=== PATIENT | female | born 1960 | race Caucasian/White ===

== ENCOUNTER 2018-02-24 09:50 | Day surgery (SDC) | END 2018-02-24 16:39 | disposition home or self-care (01) ==

== ENCOUNTER 2019-01-12 06:46 | Day surgery (SDC) | payer OTHER ==
[~2019-01-12] VITALS: Ht 152.4 cm; Wt 71.6 kg
[~2019-01-12 06:46] MED LIST: ASPI-903 PO; OMEP20CA16 PO
[2019-01-12] MEDS ORDERED: PROPOFOL 200 MG INJ ONE (07:00)
[2019-01-12 08:05] VITALS: Ht 152.4 cm; Wt 71.6 kg
[2019-01-12] MEDS ORDERED: LORA10TA3 PO (08:18)
[2019-01-12] MEDS ORDERED: SIMV80TA18 PO (08:18)
--- NOTE | 2019-01-12 08:18 | PREAC ---
Date/Time of Note Date/Time of Note DATE: 01/12/19 TIME: 08:17 Anesthesia Eval and Record Evaluation Time Pre-Procedure Interview DATE: 01/12/19 TIME: 08:17 Age 58 Sex female NPO: 8 hrs Preoperative diagnosis GERD; screening Planned procedure EGD/colonoscopy Past Medical History Past Medical History: Includes Cardio: Dyslipidemia GI: GERD Surgery & Anesthesia Issues No known issue Meds Anticoagulation: No Beta Grace within 24 hr: No Reason Beta Grace not given: Pt. not on B-Grace Reported Medications Aspirin* (Aspirin* Chew) 81 Mg Tab.chew, 81 MG PO, TAB.CHEW 09/13/14 Omeprazole* (Omeprazole*) 20 Mg Capsule.dr, 20 MG PO DAILY, CAP 09/13/14 Meds reviewed: Yes Allergies Coded Allergies: No Known Allergy (Unverified , 02/24/18) Allergies Reviewed: Yes Labs/Studies Labs Reviewed: Reviewed by anesthesiologist test: N/A Pre-procedure Exam Airway: Adequate mouth opening, Adequate thyromental dist Mallampati: Mallampati II Teeth: Normal Lung: Normal Heart: Normal ASA Physical Status ASA physical status: 2 Emergency: None Planned Anesthetic General/MAC: MAC Pre-operative Attestations Prior to commencing anesthesia and surgery, the patient was re-evaluated, there was verification of: *The patient's identity *The results of appropriate recent lab work and preoperative vital signs *The above evaluation not changing prior to induction *Anesthetic plan, risk benefits, alternative and complications discussed with patient/family; questions answered; patient/family understands, accepts and wishes to proceed. YESICA HOLCOMB January 12, 2019 08:18
[2019-01-12] MEDS ORDERED: LIDOCAINE 2% (SDV) 5 ML INJ ONE (08:20)
[2019-01-12] MEDS ORDERED: PROPOFOL 60 ML ONE (08:20)
[2019-01-12] MEDS ORDERED: ONDANSETRON 4 MG INJ IV PRN (08:30)
[2019-01-12] MEDS ORDERED: ACETAMINOPHEN 500 MG TAB PO PRN (08:30)
[2019-01-12] MEDS ORDERED: FENTAnyl 50 MCG/ML VIAL IV PRN (08:30)
[2019-01-12] MEDS ORDERED: ALBUTEROL 0.083% (NEB) 2.5 MG/3 ML AMP HHN PRN (08:30)
[2019-01-12 08:31] VITALS: BP 119/70; PULSE 67; RESP 18
--- NOTE | 2019-01-12 09:22 | PAC ---
Date/Time of Note Date/Time of Note DATE: 01/12/19 TIME: 09:21 Post-Anesthesia Notes Post-Anesthesia Note Last documented vital signs Vital Signs Date Temp Pulse Resp B/P (MAP) Pulse Ox O2 O2 Flow FiO2 Time Delivery Rate 01/12/19 98.2 98 67 70 18 16 119/70 95 100 Room 08:31 092 (86) 136/ Air NC 4L 2 72 Activity: WNL Respiratory function: WNL Cardiovascular function: WNL Mental status: Baseline Pain reasonably controlled: Yes Hydration appropriate: Yes Nausea/Vomiting absent: Yes YESICA HOLCOMB January 12, 2019 09:22
[2019-01-12 09:56] VITALS: BP 129/76; RESP 20
== END 2019-01-12 11:04 | disposition home or self-care (01) ==
LOC: GIL 06:46
PROVIDERS: ATTEND Internal Medicine Gastroenterology
DX: Z12.11 Encounter for screening for malignant neoplasm of colon (principal); K29.50 Unspecified chronic gastritis without bleeding; K64.9 Unspecified hemorrhoids
CPT/HCPCS: 43239; 45378; 88305; 88312; Z7610; 88313